=== PATIENT | female | born 2000 | race Two or more races ===

== ENCOUNTER 2020-01-16 12:20 | Emergency (ER) | payer MEDICAID, OTHER ==
[~2020-01-16] VITALS: Ht 160 cm; Wt 127.3 kg
[2020-01-16] MEDS ORDERED: IBUPROFEN 800 MG TABLET PO ONE (12:45)
[2020-01-16 13:37] VITALS: BP 128/73
== END 2020-01-16 13:40 | disposition home or self-care (01) ==
LOC: EMS 12:20
DX: R51.9 Headache, unspecified (principal); L30.9 Dermatitis, unspecified; R20.0 Anesthesia of skin

== ENCOUNTER 2021-07-27 01:49 | Emergency (ER) | payer OTHER ==
[~2021-07-27] VITALS: Ht 160 cm; Wt 127.3 kg
[2021-07-27 02:43] LABS: BASOPHILS % (AUTO) 0.8 % (0.0-2.0); EOSINOPHILS % (AUTO) 1.2 % (1.0-6.0); HEMOGLOBIN 12.3 g/dL (12.0-16.0); MONOCYTES # (AUTO) 0.8 K/uL (0.1-1.0); NEUTROPHILS # (AUTO) 8.2 K/uL (1.8-7.7)
[2021-07-27 02:47] LABS: ANION GAP 13 mmol/L (8-16); CARBON DIOXIDE 29 mmol/L (22-29); CHLORIDE 105 mmol/L (98-107); CREATININE 0.71 mg/dL (0.60-1.30); GLOMERULAR FILTR. RATE CALC > 60 mL/min (>60); GLUCOSE,RANDOM 98 mg/dL (70-110); POTASSIUM 3.9 mmol/L (3.5-5.1); SODIUM SERUM 147 mmol/L (136-145); UREA NITROGEN, BLOOD 16 mg/dL (7-18)
[2021-07-27 02:48] LABS: HEMATOCRIT 36.7 % (36-46); LYMPHOCYTES # (AUTO) 2.8 K/uL (1.0-4.8); LYMPHOCYTES % (AUTO) 23.2 % (22.0-44.0); MEAN CORPUSCULAR HEMOGLOBIN 27.1 pg (26.0-34.0); MEAN CORPUSCULAR HGB CONC 33.5 G/dL (31.0-37.0); MEAN CORPUSCULAR VOLUME 81 fL (80-100); MONOCYTES % (AUTO) 6.6 % (2.0-9.0); NEUTROPHILS % (AUTO) 68.2 % (40.0-70.0); PLATELET COUNT (AUTO) 365 K/uL (150-450); RED BLOOD CELL COUNT(AUTO) 4.55 MIL/uL (4.00-5.20); RED CELL DISTRIBUTION WIDTH 13.7 % (11.5-14.5)
[2021-07-27 10:11] VITALS: BP 150/45
== END 2021-07-27 10:20 | disposition home or self-care (01) ==
LOC: EMS 01:51
DX: R51.9 Headache, unspecified (principal); R20.2 Paresthesia of skin; R00.0 Tachycardia, unspecified; Z98.890 Other specified postprocedural states
CPT/HCPCS: 70450; 71045; 80048; 84484; 85025; 93005; 99285; 36415-L1; 36415-TC